=== PATIENT | female | born 1975 | race Caucasian/White ===

== ENCOUNTER 2018-01-04 08:54 | Emergency (ER) | payer OTHER ==
[~2018-01-04] VITALS: Ht 175.3 cm; Wt 116.0 kg
[~2018-01-04 08:54] MED LIST: CLONAZEPAM0.5 MG OR; LEXAPRO10 MG OR
[2018-01-04 10:55] VITALS: BP 136/84
[2018-01-04] MEDS ORDERED: BENADRYL 50MG C50 MG PO (10:55)
[2018-01-04] MEDS ORDERED: MEDDOSEPAK PO (10:55)
[2018-01-04] MEDS ORDERED: PEPCID20 MG PO (10:55)
== END 2018-01-04 10:55 | disposition home or self-care (01) | DRG 916 ==
LOC: ED 08:54
DX: T78.49XA Other allergy, initial encounter (principal); R22.0 Localized swelling, mass and lump, head; X58.XXXA Exposure to other specified factors, initial encounter